=== PATIENT | female | born 1960 | race Two or more races ===

== ENCOUNTER 2024-07-21 07:12 | Day surgery (SDC) | payer OTHER ==
[~2024-07-21] VITALS: Ht 167.6 cm; Wt 77.1 kg
[~2024-07-21 07:12] MED LIST: APIX5TAB PO; ATOR20TA50 PO; CETI-176 PO; CLOB0.05 EX; FLUT1SPR5; FURO40TA4 PO; HYOS0.1250 PO; KETO2CRE4 EX; LANS30CA57 PO; LEVO25TA6 PO; METO25TA93 PO; NIFE1TAB31 PO; POTA-36 PO
[2024-07-21] MEDS ORDERED: LIDOCAINE VISCOUS 2% 15ML UD ONE ×2 (07:53→07:56)
[2024-07-21] MEDS ORDERED: SODIUM CHLORIDE LOCK 10 ML ONE ×2 (08:24→09:27)
[2024-07-21] MEDS ORDERED: MIDAZOLAM HCL 2MG/2ML 2ml VIAL (1mg/ml) ONE (08:24)
[2024-07-21] MEDS ORDERED: KETAMINE 50mg/ML 1ml syringe ONE ×2 (08:24→09:27)
[2024-07-21] MEDS ORDERED: ONDANSETRON HCL 4 MG/2 ML VIAL ONE ×2 (08:24→09:27)
[2024-07-21] MEDS ORDERED: PROPOFOL 10 MG/ML 20 ML IV ONE ×2 (08:24→09:27)
[2024-07-21] MEDS ORDERED: LIDOCAINE 1% INJ PF 5ML AMP ONE ×2 (08:24→09:27)
[2024-07-21] MEDS ORDERED: fentaNYL CITRATE 100 MCG/2 ML VL ONE ×2 (08:24→09:27)
[2024-07-21] MEDS: LIDOCAINE VISCOUS 2% 15ML UD MT ONE (08:40)
[2024-07-21 08:56] VITALS: TEMP 99.1
[2024-07-21 09:20] VITALS: BP 116/55; PULSE 65; RESP 15; O2SAT 94
[2024-07-21] MEDS ORDERED: MORPHINE SULF PF 5 MG/10 ML VIAL ONE (09:27)
== END 2024-07-21 09:30 | disposition home or self-care (01) ==
LOC: GI 07:12
PROVIDERS: ATTEND Internal Medicine Gastroenterology
DX: R13.10 Dysphagia, unspecified (principal); I13.0 Hypertensive heart and chronic kidney disease with heart failure and stage 1 through stage 4 chronic kidney disease, or unspecified chronic kidney disease; E11.22 Type 2 diabetes mellitus with diabetic chronic kidney disease; I50.9 Heart failure, unspecified; N18.9 Chronic kidney disease, unspecified; E03.9 Hypothyroidism, unspecified; J45.909 Unspecified asthma, uncomplicated; I48.91 Unspecified atrial fibrillation; G89.29 Other chronic pain; K21.9 Gastro-esophageal reflux disease without esophagitis; E78.5 Hyperlipidemia, unspecified; Z98.891 History of uterine scar from previous surgery; Z98.49 Cataract extraction status, unspecified eye; Z88.1 Allergy status to other antibiotic agents; Z88.8 Allergy status to other drugs, medicaments and biological substances; Z91.040 Latex allergy status; Z79.899 Other long term (current) drug therapy; Z90.89 Acquired absence of other organs; Z90.49 Acquired absence of other specified parts of digestive tract; Z95.1 Presence of aortocoronary bypass graft; Z79.890 Hormone replacement therapy; Z80.8 Family history of malignant neoplasm of other organs or systems
CPT/HCPCS: 43235; 43450; J2250; J2405; J2704; J3010; J7030